=== PATIENT | female | born 1945 | race Caucasian/White ===

== ENCOUNTER 2017-03-19 15:11 | Emergency (ER) | payer MEDICARE, OTHER ==
--- NOTE | 2017-03-19 15:40 | EDM.PDOC ---
ED HPI GENERAL MEDICAL PROBLEM - General Chief Complaint: Head Injury Stated Complaint: bump on head Time Seen by Provider: 03/19/17 15:21 Source of Information: Reports: Patient History Limitations: Reports: No Limitations - History of Present Illness INITIAL COMMENTS - FREE TEXT/NARRATIVE: Patient comes in the emergency department today after sustaining a fall after hitting her head on a sign. Patient states that she was walking and she did not see a hard metal sign and hit the top of her head causing her to fall. Patient denies losing any consciousness or hurting any other part of her body however she states that her top of her head is extremely tender and she presented to the ER for further evaluation of this. Patient denies losing consciousness lightheaded dizziness vomiting, nausea. Patient also denies any weakness numbness tingling or blurred vision. Onset: Today, Sudden Quality: Reports: Throbbing Severity: Mild Improves with: Reports: Cold Therapy, Rest - Related Data Allergies Allergy/AdvReac Type Severity Reaction Status Date / Time flu vaccine Allergy Cannot Uncoded 03/19/17 15:33 Remember Home Meds: Home Meds Citalopram [Celexa] 20 mg PO DAILY 05/10/15 [History] Hydrochlorothiazide [Hydrochlorothiazide] 12.5 mg PO DAILY 05/10/15 [History] Alendronate [Fosamax] 70 mg PO Q7D@0600 07/11/15 [History] Past Medical History HEENT History: Reports: None Cardiovascular History: Reports: Hypertension Gastrointestinal History: Reports: None 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 History: Reports: None 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 Musculoskeletal History: Reports: Osteoporosis Neurological History: Reports: Headaches, Chronic Psychiatric History: Reports: Depression - Past Surgical History Female Surgical History: Reports: Hysterectomy Social & Family History - Family History Family Medical History: Noncontributory - Tobacco Use Smoking Status *Q: Never Smoker - Recreational Drug Use Recreational Drug Use: No ED ROS GENERAL - Review of Systems Review Of Systems: See Below Constitutional: Reports: No Symptoms HEENT: Reports: No Symptoms Respiratory: Reports: No Symptoms GI/Abdominal: Reports: No Symptoms : Reports: No Symptoms Skin: Reports: Other (tenderness on frontal/pariatal region of head ) ED EXAM, HEAD INJURY - Physical Exam Exam: See Below Exam Limited By: No Limitations General Appearance: Alert, WD/WN, No Apparent Distress Head: Scalp Hematoma, Scalp Tenderness Nexus Criteria: No: Posterior, Midline Cervical Tenderness, Evidence of Intoxication, Altered Level of Consciousness, Focal Neurological Deficit, Painful Distraction Injuries Eyes: Bilateral Eye: EOMI, Normal Fundi, Normal Inspection, PERRL Ears: Normal External Exam, Normal Canal, Hearing Grossly Normal Neck: Non-Tender, Full Range of Motion, Normal Alignment, Normal Inspection. 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 No: Abnormal Gait, Facial Droop, Motor Weakness, Sensory Deficit, Depressed Affect, Disoriented x 3 Skin: Normal Color, Warm/Dry - Agnes Coma Score Best Eye Response (Pooler): (4) Open Spontaneously Best Verbal Response (Agnes): (5) Oriented Best Motor Response (Pooler): (6) Obeys Commands Departure - Departure Time of Disposition: 15:40 Disposition: Home, Self-Care 01 Condition: Good Clinical Impression: Concussion injury of brain - Discharge Information Instructions: Head Injury, Adult, [id number], Concussion, Adult, [id number] Additional Instructions: rest Ice area for 20mins 3 times a day to help with the discomfort Take Tylenol and ibuprofen as needed for pain keep the lights low and avoid electronics the nest 24 hours If vomiting begins, feeling of the worst headed and blurry vision report back to the ER immediately If not feeling better within a week follow up with your PCP.
[2017-03-19 16:03] VITALS: BP 152/78
== END 2017-03-19 16:00 | disposition home or self-care (01) ==
LOC: VM.ED 15:11
DX: S06.0X0A Concussion without loss of consciousness, initial encounter (principal); I10 Essential (primary) hypertension; Z79.899 Other long term (current) drug therapy; W01.10XA Fall on same level from slipping, tripping and stumbling with subsequent striking against unspecified object, initial encounter; Z88.7 Allergy status to serum and vaccine
CPT/HCPCS: 99283; 99283-GF

== ENCOUNTER 2017-08-07 15:59 | Emergency (ER) | payer MEDICARE, OTHER ==
[2017-08-07 17:16] LABS: CHLORIDE,CL 104 mmol/L (98-107); SODIUM,NA 140 mmol/L (136-145)
[2017-08-07 17:35] VITALS: BP 147/82
--- NOTE | 2017-08-07 18:00 | EDM.PDOC ---
ED HPI GENERAL MEDICAL PROBLEM - General Chief Complaint: Chest Pain Stated Complaint: chest pain Time Seen by Provider: 08/07/17 17:00 Source of Information: Reports: Patient History Limitations: Reports: No Limitations - History of Present Illness INITIAL COMMENTS - FREE TEXT/NARRATIVE: Pt. complains of respirophasic chest pain located in the area of the L upper chest for 1 day. 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 Denies any substernal chest pain. No shortness of breath. No jaw, arm, neck or back pain. She states the discomfort is worse with deep breathing and movement. Duration: Constant Location: Reports: Chest Quality: Reports: Ache, Sharp Severity: Moderate Associated Symptoms: Denies: Diaphoresis, Fever/Chills, Malaise, Nausea/Vomiting , Rash, Seizure, Shortness of Breath Left mid Breast Pain Score (Numeric/FACES): 7 - Related Data Allergies Allergy/AdvReac Type Severity Reaction Status Date / Time flu vaccine Allergy Cannot Uncoded 08/07/17 16:11 Remember Home Meds: Home Meds Citalopram [Celexa] 10 mg PO DAILY 05/10/15 [History] Hydrochlorothiazide 12.5 mg PO DAILY 05/10/15 [History] Alendronate [Fosamax] 70 mg PO Q7D@0600 07/11/15 [History] Aspirin/Caffeine [Anacin 400-32 mg Tablet] 1 each PO DAILY 08/07/17 [History] Aspirin/Caffeine [Anacin 500-32 mg Tablet] 1 each PO Q4H PRN 08/07/17 [History] Cholecalciferol (Vitamin D3) [D-2000] 2,000 unit PO DAILY 08/07/17 [History] Multivitamin [Multivitamins] 1 each PO DAILY 08/07/17 [History] Past Medical History HEENT History: Reports: None Cardiovascular History: Reports: Hypertension Gastrointestinal History: Reports: None 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 History: Reports: None 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 Musculoskeletal History: Reports: Osteoporosis Other Musculoskeletal History: herniated disc Neurological History: Reports: Concussion, Headaches, Chronic Psychiatric History: Reports: Depression - Past Surgical History HEENT Surgical History: Reports: Tonsillectomy Female Surgical History: Reports: Hysterectomy Social & Family History - Family History Family Medical History: Noncontributory - Tobacco Use Smoking Status *Q: Never Smoker - Caffeine Use Caffeine Use: Reports: Coffee, Soda - Recreational Drug Use Recreational Drug Use: No ED ROS GENERAL - Review of Systems Review Of Systems: See Below Constitutional: Reports: No Symptoms HEENT: Reports: No Symptoms Respiratory: Reports: Pleuritic Chest Pain Cardiovascular: Reports: No Symptoms Endocrine: Reports: No Symptoms GI/Abdominal: Reports: No Symptoms : Reports: No Symptoms Musculoskeletal: Reports: No Symptoms Skin: Reports: No Symptoms Neurological: Reports: No Symptoms Psychiatric: Reports: No Symptoms Hematologic/Lymphatic: Reports: No Symptoms Immunologic: Reports: No Symptoms ED EXAM, GENERAL - Physical Exam Exam: See Below Exam Limited By: No Limitations General Appearance: Alert, WD/WN, No Apparent Distress Throat/Mouth: Normal Inspection, Normal Lips, Normal Teeth, Normal Gums, Normal Oropharynx, Normal Voice, No Airway Compromise Head: Atraumatic, Normocephalic Neck: Normal Inspection, Supple, Non-Tender, Full Range of Motion Respiratory/Chest: No Respiratory Distress, Lungs Clear, Normal Breath Sounds, No Accessory Muscle Use, Other (chest tenderness on palpation of L anterior chest. Also noted with movement.) Cardiovascular: Normal Peripheral Pulses, Regular Rate, Rhythm, No Edema, No Gallop, No JVD, No Murmur, No Rub Peripheral Pulses: 4+: Radial (L), Radial (R) GI/Abdominal: Normal Bowel Sounds, Soft, Non-Tender, No Organomegaly, No Distention, No Abnormal Bruit, No Mass (Female) Exam: Deferred Rectal (Female) Exam: Deferred Back Exam: Normal Inspection, Full Range of Motion, NT Extremities: Normal Inspection, Normal Range of Motion, Non-Tender, Normal Capillary Refill, No Pedal Edema Neurological: Alert, Oriented, CN II-XII Intact, Normal Cognition, Normal Gait, Normal Reflexes, No Motor/Sensory Deficits Psychiatric: Normal Affect, Normal Mood Skin Exam: Warm, Dry, Intact, Normal Color, No Rash EKG INTERPRETATION Rhythm: NSR [place]: Normal P-Wave: Present QRS: Normal ST-T: Normal QT: Normal Course - Vital Signs Last Recorded V/S: Last Vital Signs Temp 36.9 C 08/07/17 16:06 Pulse 72 08/07/17 17:30 Resp 20 08/07/17 16:06 BP 147/82 H 08/07/17 17:30 Pulse Ox 98 08/07/17 16:06 - Orders/Labs/Meds Orders: Active Orders 24 hr Category Date Time Status EKG Documentation Completion [RC] STAT Care 08/07/17 16:23 Active Chest 2V [CR] Stat Exams 08/07/17 16:22 Taken Labs: Laboratory Tests 08/07/17 08/07/17 08/07/17 Range/Units 16:41 16:41 16:41 WBC 7.2 (4.0-10.0) x10^3/uL RBC 4.37 (4.00-5.50) x10^6/uL Hgb 13.3 (12.0-16.0) g/dL Hct 40.0 (33.0-47.0) % MCV 91.5 (78.0-93.0) fL MCH 30.4 (26.0-32.0) pg MCHC 33.3 (32.0-36.0) g/dL RDW Coeff of Rosalind 13.6 (10.0-15.0) % Plt Count 216 (130-400) x10^3/uL Neut % (Auto) 55.4 (50.0-80.0) % Lymph % (Auto) 35.1 (25.0-50.0) % Ector % (Auto) 7.4 (2.0-11.0) % Eos % (Auto) 1.1 (0.0-4.0) % Baso % (Auto) 1.0 (0.2-1.2) % PT 10.2 (9.6-11.4) SEC INR 1.0 L (2.0-3.5) D-Dimer, Quantitative 0.38 (<=0.58) mg/LFEU Sodium (136-145) mmol/L Potassium (3.5-5.1) mmol/L Chloride (98-107) mmol/L Carbon Dioxide (21-32) mmol/L Anion Gap (10-20) mmol/L BUN (7-18) mg/dL Creatinine (0.55-1.02) mg/dL Est Cr Clr Drug Dosing mL/min Estimated GFR (MDRD) Glucose (74-106) mg/dL Calcium (8.5-10.1) mg/dL Corrected Calcium (8.5-10.1) mg/dL Total Bilirubin (0.2-1.0) mg/dL AST (15-37) U/L ALT (14-59) U/L Alkaline Phosphatase (46-116) U/L Troponin I (<=0.056) ng/mL C-Reactive Protein (<=0.9) mg/dL Total Protein (6.4-8.2) g/dL Albumin (3.4-5.0) g/dL Globulin Albumin/Globulin Ratio // Range/Units 16:41 WBC (4.0-10.0) x10^3/uL RBC (4.00-5.50) x10^6/uL Hgb (12.0-16.0) g/dL Hct (33.0-47.0) % MCV (78.0-93.0) fL MCH (26.0-32.0) pg MCHC (32.0-36.0) g/dL RDW Coeff of Rosalind (10.0-15.0) % Plt Count (130-400) x10^3/uL Neut % (Auto) (50.0-80.0) % Lymph % (Auto) (25.0-50.0) % Ector % (Auto) (2.0-11.0) % Eos % (Auto) (0.0-4.0) % Baso % (Auto) (0.2-1.2) % PT (9.6-11.4) SEC INR (2.0-3.5) D-Dimer, Quantitative (<=0.58) mg/LFEU Sodium 140 (136-145) mmol/L Potassium 3.7 (3.5-5.1) mmol/L Chloride 104 (98-107) mmol/L Carbon Dioxide 29 (21-32) mmol/L Anion Gap 10.7 (10-20) mmol/L BUN 18 (7-18) mg/dL Creatinine 0.7 (0.55-1.02) mg/dL Est Cr Clr Drug Dosing 64.41 mL/min Estimated GFR (MDRD) > 60 Glucose 88 (74-106) mg/dL Calcium 9.1 (8.5-10.1) mg/dL Corrected Calcium 9.58 (8.5-10.1) mg/dL Total Bilirubin 0.3 (0.2-1.0) mg/dL AST 26 (15-37) U/L ALT 22 (14-59) U/L Alkaline Phosphatase 68 (46-116) U/L Troponin I < 0.017 (<=0.056) ng/mL C-Reactive Protein < 0.2 (<=0.9) mg/dL Total Protein 6.4 (6.4-8.2) g/dL Albumin 3.4 (3.4-5.0) g/dL Globulin 3.0 Albumin/Globulin Ratio 1.13 - Radiology Interpretation Free Text/Narrative:: CXR is negative Departure - Departure Time of Disposition: 17:30 Disposition: Home, Self-Care 01 Clinical Impression: Chest wall pain - Discharge Information Instructions: Chest Wall Pain, [id number] Referrals: Adela Dyer DO [Primary Care Provider] - Forms: ED Department Discharge Additional Instructions: Home to rest. Ibuprofen 600mg every 6-8 hours as needed for pain. Heat or ice as needed for chest pain. - My Orders Last 24 Hours: My Active Orders 08/07/17 16:22 Chest 2V [CR] Stat 08/07/17 16:23 EKG Documentation Completion [RC] STAT - Assessment/Plan Last 24 Hours: My Active Orders 08/07/17 16:22 Chest 2V [CR] Stat 08/07/17 16:23 EKG Documentation Completion [RC] STAT Plan: Home to rest. Ibuprofen 600mg every 6-8 hours as needed for pain. Heat or ice as needed for chest pain.
== END 2017-08-07 17:35 | disposition home or self-care (01) ==
LOC: VM.ED 15:59
DX: R07.89 Other chest pain (principal); I10 Essential (primary) hypertension; Z88.7 Allergy status to serum and vaccine; Z79.899 Other long term (current) drug therapy; Z79.82 Long term (current) use of aspirin; Z90.710 Acquired absence of both cervix and uterus
CPT/HCPCS: 36415; 71046; 80053; 84484; 85025; 85379; 85610; 86140; 93005; 99285

== ENCOUNTER 2018-10-21 15:26 | Emergency (ER) | payer MEDICARE, OTHER ==
[2018-10-21 15:51] VITALS: BP 140/74
--- NOTE | 2018-10-21 16:24 | EDM.PDOC ---
ED HPI GENERAL MEDICAL PROBLEM - General Chief Complaint: ENT Problem Stated Complaint: POUNDING IN THE LEFT EAR Time Seen by Provider: 10/21/18 16:11 Source of Information: Reports: Patient History Limitations: Reports: No Limitations - History of Present Illness INITIAL COMMENTS - FREE TEXT/NARRATIVE: Patient presents with complaints of a pulsing pounding in her left ear. She denies ear pain, fever, chills, cold, cough. Denies chest pain, sob, abdominal pain, nausea, vomiting, no urinary or bowel symptoms. Feels fine without complaints with the exception of the pulsing sound in her ear that she describes as a heart beat sound. This started yesterday. Nothing makes this better or worse. Onset: Sudden Onset Date: 10/20/18 Duration: Intermittent Location: Reports: Other (left ear) Severity: Mild Associated Symptoms: Reports: No Other Symptoms - Related Data Allergies Allergy/AdvReac Type Severity Reaction Status Date / Time flu vaccine Allergy Cannot Uncoded 08/07/17 16:11 Remember Home Meds: Home Meds Citalopram [Celexa] 10 mg PO DAILY 05/10/15 [History] hydroCHLOROthiazide [Hydrochlorothiazide] 12.5 mg PO DAILY 05/10/15 [History] Alendronate [Fosamax] 70 mg PO Q7D@0600 07/11/15 [History] Aspirin/Caffeine [Anacin 400-32 mg Tablet] 1 each PO DAILY 08/07/17 [History] Cholecalciferol (Vitamin D3) [D-2000] 2,000 unit PO DAILY 08/07/17 [History] Multivitamin [Multivitamins] 1 each PO DAILY 08/07/17 [History] Past Medical History HEENT History: Reports: None Cardiovascular History: Reports: Hypertension Gastrointestinal History: Reports: None 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 History: Reports: 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 Musculoskeletal History: Reports: Osteoporosis Other Musculoskeletal History: herniated disc Neurological History: Reports: Concussion, Headaches, Chronic Psychiatric History: Reports: Depression - Past Surgical History HEENT Surgical History: Reports: Tonsillectomy Female Surgical History: Reports: Hysterectomy Social & Family History - Family History Family Medical History: Noncontributory - Tobacco Use Smoking Status *Q: Never Smoker - Caffeine Use Caffeine Use: Reports: Coffee, Soda ED ROS ENT - Review of Systems Review Of Systems: See Below Constitutional: Reports: No Symptoms HEENT: Reports: Other (pulsing sound in left ear) Respiratory: Reports: No Symptoms Cardiovascular: Reports: No Symptoms Endocrine: Reports: No Symptoms GI/Abdominal: Reports: No Symptoms : Reports: No Symptoms Musculoskeletal: Reports: No Symptoms Skin: Reports: No Symptoms Neurological: Reports: No Symptoms Psychiatric: Reports: No Symptoms Hematologic/Lymphatic: Reports: No Symptoms Immunologic: Reports: No Symptoms ED EXAM, ENT - Physical Exam Exam: See Below Exam Limited By: No Limitations General Appearance: Alert, WD/WN, No Apparent Distress Eye Exam: Bilateral Eye: EOMI, Normal Inspection, PERRL Ears: Normal External Exam, Normal Canal, Hearing Grossly Normal, Normal TMs Nose: Normal Inspection, Normal Mucousa, No Blood Mouth/Throat: Normal Inspection, Normal Gums, Normal Lips, Normal Oropharynx, Normal Teeth Head: Atraumatic, Normocephalic Neck: Normal Inspection, Supple, Non-Tender, Full Range of Motion. No: Carotid Bruit Respiratory/Chest: No Respiratory Distress, Lungs Clear, Normal Breath Sounds, No Accessory Muscle Use, Chest Non-Tender Cardiovascular: Normal Peripheral Pulses, Regular Rate, Rhythm, No Edema, No Gallop, No JVD, No Murmur, No Rub GI/Abdominal: Normal Bowel Sounds, Soft, Non-Tender, No Organomegaly, No Distention, No Abnormal Bruit, No Mass Extremities: Normal Inspection, Normal Range of Motion, Non-Tender, No Pedal Edema, Normal Capillary Refill Neurological: Alert, Oriented, CN II-XII Intact, Normal Cognition, Normal Gait, Normal Reflexes, No Motor/Sensory Deficits Psychiatric: Normal Affect, Normal Mood Skin: Warm, Dry, Intact, Normal Color, No Rash Lymphatic: No Adenopathy Course - Vital Signs Last Recorded V/S: Last Vital Signs Temp 36.3 C 10/21/18 15:35 Pulse 73 10/21/18 15:35 Resp 18 10/21/18 15:35 BP 140/74 10/21/18 15:35 Pulse Ox 95 10/21/18 15:35 Departure - Departure Time of Disposition: 16:27 Disposition: Home, Self-Care 01 Condition: Good Clinical Impression: Pulsatile tinnitus of left ear - Discharge Information *PRESCRIPTION DRUG MONITORING PROGRAM REVIEWED*: Not Applicable *COPY OF PRESCRIPTION DRUG MONITORING REPORT IN PATIENT JAYLEN: Not Applicable Instructions: Tinnitus Referrals: Adela Dyer, [Primary Care Provider] - Additional Instructions: Plan Follow up with Dr. Dyer as scheduled on You most likely are suffering from pulsatile tinnitus. This can be caused by hearing loss, hypertension, carotid artery sclerosis You may need some additional testing to be sure this is not a result of a narrowing of your arteries Please call if you have any additional questions or concerns - Problem List & Annotations (1) Pulsatile tinnitus of left ear SNOMED Code(s): 372128976, 041238430 Code(s): H93.A2 - PULSATILE TINNITUS, LEFT EAR Status: Acute Priority: Low Current Visit: Yes - Problem List Review Problem List Initiated/Reviewed/Updated: Yes
== END 2018-10-21 16:30 | disposition home or self-care (01) ==
LOC: VM.ED 15:26
DX: H93.A2 Pulsatile tinnitus, left ear (principal); I10 Essential (primary) hypertension; F32.9 Major depressive disorder, single episode, unspecified; Z79.82 Long term (current) use of aspirin; Z79.899 Other long term (current) drug therapy; Z88.7 Allergy status to serum and vaccine
CPT/HCPCS: 99283; 99284-GF

== ENCOUNTER 2019-03-28 17:46 | Emergency (ER) | payer MEDICARE, OTHER ==
[2019-03-28] MEDS ORDERED: Sodium Chloride 0.9% 10 ML Syringe FLUSH PRN (18:04)
[2019-03-28] MEDS ORDERED: Sodium Chloride 0.9% 1,000 ML IV ONE ×2 (18:07→19:34)
[2019-03-28 18:27] LABS: BARBITURATE SCREEN,URINE NEGATIVE (NEGATIVE); BENZODIAZEPINES SCREEN,URINE NEGATIVE (NEGATIVE); EDDP,URINE SCREEN NEGATIVE (NEGATIVE); METHAMPHETAMINE SCREEN, URINE NEGATIVE (NEGATIVE); TCA SCREEN,URINE NEGATIVE (NEGATIVE); THC SCREEN,URINE 50 NG/ML NEGATIVE (NEGATIVE)
[2019-03-28 18:55] LABS: CHLORIDE,CL 99 mmol/L (98-107); SODIUM,NA 137 mmol/L (136-145)
[2019-03-28 18:56] VITALS: BP 136/70; PULSE 70
[2019-03-28 18:57] LABS: ANION GAP 13.5 mmol/L (10-20)
[2019-03-28] MEDS ORDERED: Iopamidol 612 MG/ML 100 ML Bottle IVPUSH ONE (19:38)
--- NOTE | 2019-03-28 20:12 | CT ---
[id number] CT/CT Head WO IV EXAM: CT Head WO IV CLINICAL DATA: TRAUMA CHANGE IN MENTAL STATUS COMPARISON: NO PREVIOUS SIMILAR EXAM IS AVAILABLE FOR COMPARISON. FINDINGS: There is no mass or mass effect. There is no hemorrhage or hydrocephalus. There are no extra-axial fluid collections. There are no sites of abnormal attenuation. IMPRESSION: NO PLAIN CT EVIDENCE OF ACUTE INTRACRANIAL PROCESS. Neil Granger MD 03/28/192010 Thank you for allowing us to participate in the care of your patient.
--- NOTE | 2019-03-28 20:19 | CT ---
[id number] CT/CT Chest Abdomen Pelvis W IV Exam: CT Chest Abdomen Pelvis W IV Clinical Data: TRAUMA COMPARISON: CORRELATION IS MADE WITH THE PLAIN FILM OF AUGUST 07, 2017 FINDINGS: There is no pulmonary parenchymal contusion There is no pleural effusion or pneumothorax There is no lung mass There is no mediastinal hemorrhage or mass The great vessels are intact The liver and spleen, kidneys and adrenals, pancreas and aorta are unremarkable The pelvis shows no mass, hemorrhage, or fluid collection There is no fracture seen IMPRESSION: NO ACUTE INJURY Neil Granger MD 03/28/192016 Thank you for allowing us to participate in the care of your patient.
--- NOTE | 2019-03-29 01:01 | EDM.PDOC ---
ED HPI GENERAL MEDICAL PROBLEM - General Chief Complaint: General Stated Complaint: FALL Time Seen by Provider: 03/28/19 17:50 Source of Information: Reports: Patient, Provider History Limitations: Reports: No Limitations - History of Present Illness INITIAL COMMENTS - FREE TEXT/NARRATIVE: Pt. was sent to ER from clinic. Pt. states that she had a fall at home and is complaining of L sided abdominal, lower chest, pelvic and back pain. She was recently seen in the clinic for cough and was diagnosed with viral URI. She states that she doesn't think she had been eating or drinking enough. Pt. underwent plain film x-rays of pelvis, hip and L spine which were negative for acute pathology. She was sent to ER for further evaluation and care. Pt. denies any chest pain or shortness of breath. No nausea, vomiting, or diarrhea. She thinks she hit her head when she fell. She complains of some neck pain as well. She states that she fell off of a chair. Denied any chest pain, palpitations or lightheadedness prior to the fall. Provider at [facility] talked to the patient's son. He felt that she sounded weak, and was somewhat confused. She was alert and oriented at the clinic and for nursing staff on arrival to ER. Onset Date: 03/25/19 Location: Reports: Chest, Abdomen, Back, Pelvis, Lower Extremity, Left Quality: Reports: Ache, Dull Left Lower Anterior Chest Pain Score (Numeric/FACES): 7 - Related Data Allergies Allergy/AdvReac Type Severity Reaction Status Date / Time flu vaccine Allergy Cannot Uncoded 03/28/19 18:41 Remember Home Meds: Home Meds Citalopram [Celexa] 10 mg PO DAILY 05/10/15 [History] hydroCHLOROthiazide [Hydrochlorothiazide] 12.5 mg PO DAILY 05/10/15 [History] Alendronate [Fosamax] 70 mg PO Q7D@0600 07/11/15 [History] Aspirin/Caffeine [Anacin 400-32 mg Tablet] 1 each PO DAILY 08/07/17 [History] Cholecalciferol (Vitamin D3) [D-2000] 2,000 unit PO DAILY 08/07/17 [History] Multivitamin [Multivitamins] 1 each PO DAILY 08/07/17 [History] Past Medical History HEENT History: Reports: None Cardiovascular History: Reports: Hypertension Gastrointestinal History: Reports: None 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 History: Reports: None HAND TUBE BENDER History: Reports: None Musculoskeletal History: Reports: Osteoporosis Other Musculoskeletal History: herniated disc Neurological History: Reports: Concussion, Headaches, Chronic Psychiatric History: Reports: Depression - Past Surgical History HEENT Surgical History: Reports: Tonsillectomy Female Surgical History: Reports: Hysterectomy Social & Family History - Family History Family Medical History: Noncontributory - Tobacco Use Smoking Status *Q: Never Smoker - Caffeine Use Caffeine Use: Reports: Coffee, Soda - Recreational Drug Use Recreational Drug Use: No ED ROS GENERAL - Review of Systems Review Of Systems: See Below Constitutional: Reports: No Symptoms HEENT: Reports: No Symptoms Respiratory: Reports: No Symptoms Cardiovascular: Reports: No Symptoms Endocrine: Reports: No Symptoms GI/Abdominal: Reports: Abdominal Pain : Reports: No Symptoms Musculoskeletal: Reports: Joint Pain Skin: Reports: No Symptoms Neurological: Reports: No Symptoms Psychiatric: Reports: No Symptoms Hematologic/Lymphatic: Reports: No Symptoms Immunologic: Reports: No Symptoms ED EXAM, GENERAL - Physical Exam Exam: See Below Exam Limited By: No Limitations General Appearance: Alert, WD/WN, No Apparent Distress Eye Exam: Bilateral Eye: EOMI, Normal Fundi, Normal Inspection, PERRL Ear Exam: Bilateral Ear: Auricle Normal, Canal Normal, TM normal Nose: Normal Inspection, Normal Mucosa, No Blood Throat/Mouth: Normal Inspection, Normal Lips, Normal Teeth, Normal Gums, Normal Oropharynx, Normal Voice, No Airway Compromise Head: Atraumatic, Normocephalic, Other Neck: Normal Inspection, Tender Midline Respiratory/Chest: No Respiratory Distress, Lungs Clear, Normal Breath Sounds, No Accessory Muscle Use, Other (L anterior lower chest pain, worse with palp. No ecchymosis.) Cardiovascular: Normal Peripheral Pulses, Regular Rate, Rhythm, No Edema, No Gallop, No JVD, No Murmur, No Rub Peripheral Pulses: 4+: Radial (L) GI/Abdominal: Normal Bowel Sounds, Soft, Non-Tender, No Organomegaly, No Distention, No Mass, Pelvis Stable (Female) Exam: Deferred Rectal (Female) Exam: Deferred Back Exam: Normal Inspection, Full Range of Motion Extremities: Normal Inspection, Non-Tender, Joint Swelling (L hip. She is able to ambulate and bear weight.), Limited Range of Motion Neurological: Alert, Oriented, CN II-XII Intact, Normal Cognition, Normal Gait, Normal Reflexes, No Motor/Sensory Deficits Psychiatric: Normal Affect, Anxious Skin Exam: Warm, Dry, Intact, Normal Color, No Rash Lymphatic: No Adenopathy EKG INTERPRETATION Rhythm: NSR [place]: Normal P-Wave: Present QRS: Normal ST-T: Normal QT: Normal Course - Vital Signs Last Recorded V/S: Last Vital Signs Temp 37.6 C 03/28/19 17:50 Pulse 70 03/28/19 17:50 Resp 16 03/28/19 17:50 BP 136/70 03/28/19 17:50 Pulse Ox 96 03/28/19 17:50 - Orders/Labs/Meds Orders: Active Orders 24 hr Category Date Time Status EKG Documentation Completion [RC] STAT Care 03/28/19 18:04 Active Cervical Spine wo Cont [CT] Stat Exams 03/28/19 18:03 Taken Sodium Chloride 0.9% [Saline Flush] Med 03/28/19 18:04 Active 10 ml FLUSH ASDIRECTED PRN Peripheral IV Insertion Adult [OM.PC] Routine Oth 03/28/19 18:04 Ordered Medication Orders Sodium Chloride (Saline Flush) 10 ml FLUSH ASDIRECTED PRN PRN Reason: Keep Vein Open Labs: Laboratory Tests 03/28/19 03/28/19 03/28/19 Range/Units 18:15 18:15 18:18 WBC 5.8 (4.0-10.0) x10^3/uL RBC 4.44 (4.00-5.50) x10^6/uL Hgb 13.4 (12.0-16.0) g/dL Hct 39.5 (33.0-47.0) % MCV 89.0 (78.0-93.0) fL MCH 30.2 (26.0-32.0) pg MCHC 33.9 (32.0-36.0) g/dL RDW Coeff of Rosalind 13.9 (10.0-15.0) % Plt Count 195 (130-400) x10^3/uL Neut % (Auto) 57.2 (50.0-80.0) % Lymph % (Auto) 22.9 L (25.0-50.0) % [place] % (Auto) 19.0 H (2.0-11.0) % Eos % (Auto) 0.2 (0.0-4.0) % Baso % (Auto) 0.7 (0.2-1.2) % PT (10.0-12.8) SEC INR (2.0-3.5) Sodium (136-145) mmol/L Potassium (3.5-5.1) mmol/L Chloride (98-107) mmol/L Carbon Dioxide (21-32) mmol/L Anion Gap (10-20) mmol/L BUN (7-18) mg/dL Creatinine (0.55-1.02) mg/dL Est Cr Clr Drug Dosing Estimated GFR (MDRD) Glucose (74-106) mg/dL Calcium (8.5-10.1) mg/dL Corrected Calcium (8.5-10.1) mg/dL Magnesium (1.8-2.4) mg/dL Total Bilirubin (0.2-1.0) mg/dL AST (15-37) U/L ALT (14-59) U/L Alkaline Phosphatase (46-116) U/L Troponin I (<=0.056) ng/mL C-Reactive Protein (<=0.9) mg/dL Total Protein (6.4-8.2) g/dL Albumin (3.4-5.0) g/dL Globulin Albumin/Globulin Ratio TSH, Ultra Sensitive (0.358-3.74) uIU/mL Urine Color Yellow (YELLOW) Urine Appearance Slightly cloudy H (CLEAR) Urine pH 5.5 (5.0-8.0) Ur Specific [place] >=1.030 Urine Protein 30 H (NEGATIVE) mg/dL Urine Glucose (UA) Negative (NEGATIVE) mg/dL Urine Ketones Trace H (NEGATIVE) mg/dL Urine Occult Blood Trace-intact H (NEGATIVE) Urine Nitrite Negative (NEGATIVE) Urine Bilirubin Small H (NEGATIVE) Urine Urobilinogen 0.2 (0.2) EU/dL Ur Leukocyte Esterase Negative (NEGATIVE) Urine RBC 5-10 H (NOT SEEN) /HPF Urine WBC 0-5 (NOT SEEN) /HPF Ur Squamous Epith Cells Few H (NEGATIVE) /HPF Urine Bacteria Rare (NEGATIVE) /HPF Urine Mucus Not seen (NEGATIVE) /LPF Urine Opiates Screen Negative (NEGATIVE) Ur Buprenorphine Scrn Negative (NEGATIVE) Ur Oxycodone Screen Negative (NEGATIVE) Ur EDDP (Meth Metab) Negative (NEGATIVE) Urine Methadone Screen Negative (NEGATIVE) Ur Barbiturates Screen Negative (NEGATIVE) Ur Tricyclics Screen Negative (NEGATIVE) Ur Phencyclidine Scrn Negative (NEGATIVE) Ur Amphetamine Screen Negative (NEGATIVE) U Methamphetamines Scrn Negative (NEGATIVE) Urine MDMA Screen Negative (NEGATIVE) U Benzodiazepines Scrn Negative (NEGATIVE) U Cocaine Metab Screen Negative (NEGATIVE) U Marijuana (THC) Screen Negative (NEGATIVE) Ethyl Alcohol (0-3) mg/dL Monoscreen (NEGATIVE) 03/28/19 03/28/19 03/28/19 Range/Units 18:18 18:18 18:18 WBC (4.0-10.0) x10^3/uL RBC (4.00-5.50) x10^6/uL Hgb (12.0-16.0) g/dL Hct (33.0-47.0) % MCV (78.0-93.0) fL MCH (26.0-32.0) pg MCHC (32.0-36.0) g/dL RDW Coeff of Rosalind (10.0-15.0) % Plt Count (130-400) x10^3/uL Neut % (Auto) (50.0-80.0) % Lymph % (Auto) (25.0-50.0) % [place] % (Auto) (2.0-11.0) % Eos % (Auto) (0.0-4.0) % Baso % (Auto) (0.2-1.2) % PT 11.7 (10.0-12.8) SEC INR 1.0 L (2.0-3.5) Sodium 137 (136-145) mmol/L Potassium 3.5 (3.5-5.1) mmol/L Chloride 99 (98-107) mmol/L Carbon Dioxide 28 (21-32) mmol/L Anion Gap 13.5 (10-20) mmol/L BUN 21 H (7-18) mg/dL Creatinine 0.9 (0.55-1.02) mg/dL Est Cr Clr Drug Dosing TNP Estimated GFR (MDRD) > 60 Glucose 75 (74-106) mg/dL Calcium 8.3 L (8.5-10.1) mg/dL Corrected Calcium 8.86 (8.5-10.1) mg/dL Magnesium 2.2 (1.8-2.4) mg/dL Total Bilirubin 0.4 (0.2-1.0) mg/dL AST 40 H (15-37) U/L ALT 31 (14-59) U/L Alkaline Phosphatase 61 (46-116) U/L Troponin I 0.027 (<=0.056) ng/mL C-Reactive Protein 7.5 H (<=0.9) mg/dL Total Protein 6.8 (6.4-8.2) g/dL Albumin 3.3 L (3.4-5.0) g/dL Globulin 3.5 Albumin/Globulin Ratio 0.94 TSH, Ultra Sensitive 0.711 (0.358-3.74) uIU/mL Urine Color (YELLOW) Urine Appearance (CLEAR) Urine pH (5.0-8.0) Ur Specific [place] Urine Protein (NEGATIVE) mg/dL Urine Glucose (UA) (NEGATIVE) mg/dL Urine Ketones (NEGATIVE) mg/dL Urine Occult Blood (NEGATIVE) Urine Nitrite (NEGATIVE) Urine Bilirubin (NEGATIVE) Urine Urobilinogen (0.2) EU/dL Ur Leukocyte Esterase (NEGATIVE) Urine RBC (NOT SEEN) /HPF Urine WBC (NOT SEEN) /HPF Ur Squamous Epith Cells (NEGATIVE) /HPF Urine Bacteria (NEGATIVE) /HPF Urine Mucus (NEGATIVE) /LPF Urine Opiates Screen (NEGATIVE) Ur Buprenorphine Scrn (NEGATIVE) Ur Oxycodone Screen (NEGATIVE) Ur EDDP (Meth Metab) (NEGATIVE) Urine Methadone Screen (NEGATIVE) Ur Barbiturates Screen (NEGATIVE) Ur Tricyclics Screen (NEGATIVE) Ur Phencyclidine Scrn (NEGATIVE) Ur Amphetamine Screen (NEGATIVE) U Methamphetamines Scrn (NEGATIVE) Urine MDMA Screen (NEGATIVE) U Benzodiazepines Scrn (NEGATIVE) U Cocaine Metab Screen (NEGATIVE) U Marijuana (THC) Screen (NEGATIVE) Ethyl Alcohol < 3 (0-3) mg/dL Monoscreen Negative (NEGATIVE) Meds: Medications Generic Name Dose Route Start Last Admin Trade Name Freq PRN Reason Stop Dose Admin Sodium Chloride 10 ml 03/28/19 18:04 Saline Flush FLUSH ASDIRECTED PRN Keep Vein Open Discontinued Medications Generic Name Dose Route Start Last Admin Trade Name Vivekq PRN Reason Stop Dose Admin Sodium Chloride 1,000 mls @ 1,000 mls/hr 03/28/19 18:07 03/28/19 18:19 Normal Saline IV 03/28/19 19:06 1,000 mls/hr .BOLUS ONE Administration Sodium Chloride 1,000 mls @ 1,000 mls/hr 03/28/19 19:34 03/28/19 19:45 Normal Saline IV 03/28/19 20:33 1,000 mls/hr .BOLUS ONE Administration Iopamidol 100 ml 03/28/19 19:38 03/28/19 19:38 Isovue-300 (61%) IVPUSH 03/28/19 19:39 100 ml ONETIME ONE Administration - Radiology Interpretation Free Text/Narrative:: CT chest, abdomen and pelvis were obtained and are negative. CT brain is negative for acute pathology. CT cervical spine negative for fracture. No obvious subluxation. Multiple chronic findings noted. - Re-Assessments/Exams Free Text/Narrative Re-Assessment/Exam: Pt. was given 1.5 liters or NS in ER. She remained stable in my care in ER. Departure - Departure Time of Disposition: 20:30 Disposition: Home, Self-Care 01 Condition: Good Clinical Impression: Chest wall contusion, Contusion of hip, left, Abdominal wall contusion, Dehydration - Discharge Information Instructions: Dehydration, Adult, Dorp-pr-Lbow, Viral Illness, Adult Referrals: Adela Dyer DO [Primary Care Provider] - Forms: ED Department Discharge Additional Instructions: Home to rest. Drink plenty of fluids Tylenol and ibuprofen as needed for fever/discomfort. Recheck in clinic tomorrow. Sepsis Event Note - Evaluation Sepsis Screening Result: No Definite Risk - Focused Exam Vital Signs: Vital Signs Temp Pulse Resp BP Pulse Ox 03/28/19 17:50 37.6 C 70 16 136/70 96 Date Exam was Performed: 03/29/19 Time Exam was Performed: 00:56 - My Orders Last 24 Hours: My Active Orders 03/28/19 18:03 Cervical Spine wo Cont [CT] Stat 03/28/19 18:04 EKG Documentation Completion [RC] STAT Sodium Chloride 0.9% [Saline Flush] 10 ml FLUSH ASDIRECTED PRN Peripheral IV Insertion Adult [OM.PC] Routine - Assessment/Plan Last 24 Hours: My Active Orders 03/28/19 18:03 Cervical Spine wo Cont [CT] Stat 03/28/19 18:04 EKG Documentation Completion [RC] STAT Sodium Chloride 0.9% [Saline Flush] 10 ml FLUSH ASDIRECTED PRN Peripheral IV Insertion Adult [OM.PC] Routine Plan: Pt. was quite dehydrated (urine SG was 1.030). No history of nausea, vomiting, diarrhea, or exertion. Discussed the importance of staying hydrated. Discussed insensible water loss during winter when humidity is low and heating system is on. She states that she hardly ever drinks water. She was advised to drink 8 glasses of water per day. Eat a good meal. Follow-up in clinic later this week, sooner if not gradually improving. As far as the patient's mental status is concerned, she is alert and oriented during her stay. She is able to recall all of her medical history. She feels she is able to care for herself, and states that she lives down the [address] and will return/call 911 if she has any chest pain, shortness of breath, palpitations, feels faint, etc.
--- NOTE | 2019-03-29 07:36 | CT ---
[id number] CT/CT Cervical Spine WO IV Exam: CT Cervical Spine WO IV Clinical Data: TRAUMA COMPARISON: NO PREVIOUS SIMILAR EXAM IS AVAILABLE FINDINGS: There is no obvious fracture or subluxation No previous studies are available for comparison The prevertebral soft tissues are unremarkable There is loss of disc space at C5-C6 There is minimal posterior positioning of C5 on C6 likely degenerative There is a normal appearance of the C1-C2 articulation IMPRESSION: NO OBVIOUS FRACTURE OR SUBLUXATION ABNORMAL FINDING C5-C6 LIKELY DEGENERATIVE CONSIDER GENTLE FLEXION AND EXTENSION LATERAL VIEWS. IF SYMPTOMS PERSIST, CONSIDER MRI. ABNORMAL ALIGNMENT OF THE SPINOLAMINAL LINE AT THIS LEVEL LIKELY IS DEGENERATIVE ANTERIOR BONY DENSITY ADJACENT TO THE ANTERIOR INFERIOR CORNER OF THE C5 VERTEBRAL RIGHT LIKELY IS ALSO DEGENERATIVE THERE IS NO SOFT TISSUE SWELLING AT THIS LEVEL CONSIDER PERHAPS IMMOBILIZATION WITH A SOFT COLLAR AND FURTHER IMAGING Neil Granger MD 03/29/19 0735 Thank you for allowing us to participate in the care of your patient.
== END 2019-03-28 21:00 | disposition home or self-care (01) ==
LOC: VM.ED 17:46
DX: S70.02XA Contusion of left hip, initial encounter (principal); S20.212A Contusion of left front wall of thorax, initial encounter; S30.1XXA Contusion of abdominal wall, initial encounter; E86.0 Dehydration; I10 Essential (primary) hypertension; F32.9 Major depressive disorder, single episode, unspecified; Z88.7 Allergy status to serum and vaccine; Z79.899 Other long term (current) drug therapy; Z79.82 Long term (current) use of aspirin; Z90.710 Acquired absence of both cervix and uterus; W07.XXXA Fall from chair, initial encounter; Y92.009 Unspecified place in unspecified non-institutional (private) residence as the place of occurrence of the external cause
CPT/HCPCS: 36415; 70450; 71260; 72125; 74177; 80053; 80305-QW; 81001; 83735; 84443; 84484; 85025; 85610; 86140; 86308; 93005; 93010; 96360; 96361; 99284-GF; 99285-25; G0480; J7030; Q9967

== ENCOUNTER 2020-12-05 14:27 | Emergency (ER) | payer MEDICARE, OTHER ==
[2020-12-05 15:20] VITALS: PULSE 70
--- NOTE | 2020-12-05 15:20 | EDM.PDOC ---
ED HPI GENERAL MEDICAL PROBLEM - General Chief Complaint: General Stated Complaint: vomiting/left arm shaking Time Seen by Provider: 12/05/20 14:50 Source of Information: Reports: Patient, Family History Limitations: Reports: Other (has short term memory recall deficit of all events of the day) - History of Present Illness INITIAL COMMENTS - FREE TEXT/NARRATIVE: Tracie is a 75 year old who presents to ER with son with concerns of not feeling well. States earlier in the day, noted her left arm was shaking and felt cold. Laid down to rest then and felt her left leg start to feel cold. Denies any head pain. No weakness in either her arm or leg. Is ambulating well at home per son and in to ER. Tried to eat dinner today and was unable to "keep down and vomited it all up". Had another episode of vomiting prior to coming here. Relates a "few" episodes of diarrhea since this am as well. Feels weak and cold. Son relates that she often complains of feeling cold. No chest pain, shortness of breath or abdominal pain. Denies fevers. No burning with urination. Onset: Today, Gradual Duration: Hour(s): Location: Reports: Abdomen, Generalized Quality: Reports: Ache Severity: Mild Improves with: Reports: Rest Associated Symptoms: Reports: Confusion (chronic in nature), Malaise, Nausea/Vomiting. Denies: Chest Pain, Cough, Fever/Chills, Headaches, Loss of Appetite, Shortness of Breath - Related Data Allergies Allergy/AdvReac Type Severity Reaction Status Date / Time flu vaccine Allergy Cannot Uncoded 12/05/20 15:25 Remember Home Meds: Home Meds Citalopram [Celexa] 10 mg PO DAILY 05/10/15 [History] hydroCHLOROthiazide [Hydrochlorothiazide] 12.5 mg PO DAILY 05/10/15 [History] Alendronate [Fosamax] 70 mg PO Q7D@0600 07/11/15 [History] Aspirin/Caffeine [Anacin 400-32 mg Tablet] 1 each PO DAILY 08/07/17 [History] Cholecalciferol (Vitamin D3) [D-2000] 2,000 unit PO DAILY 08/07/17 [History] Multivitamin [Multivitamins] 1 each PO DAILY 08/07/17 [History] Donepezil HCl [Aricept] 20 mg PO DAILY 12/05/20 [History] Past Medical History HEENT History: Reports: None Cardiovascular History: Reports: Hypertension Gastrointestinal History: Reports: None 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 History: Reports: None CLEANING 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 History: Reports: None Musculoskeletal History: Reports: Osteoporosis Other Musculoskeletal History: herniated disc Neurological History: Reports: Concussion, Headaches, Chronic Psychiatric History: Reports: Depression - Past Surgical History HEENT Surgical History: Reports: Tonsillectomy GI Surgical History: Reports: None Female Surgical History: Reports: Hysterectomy Social & Family History - Family History Family Medical History: No Pertinent Family History - Tobacco Use Tobacco Use Status *Q: Unknown Ever Used Tobacco - Caffeine Use Caffeine Use: Reports: Coffee, Soda ED ROS GENERAL - Review of Systems Review Of Systems: See Below Constitutional: Reports: Chills, Malaise, Weakness, Fatigue. Denies: Fever, Decreased Appetite HEENT: Denies: Rhinitis, Sinus Problem, Throat Pain, Vertigo, Vision Change Respiratory: Denies: Shortness of Breath, Cough Cardiovascular: Denies: Chest Pain, Edema, Lightheadedness Endocrine: Reports: Fatigue GI/Abdominal: Reports: Diarrhea, Nausea, Vomiting. Denies: Abdominal Pain, Constipation : Reports: No Symptoms Musculoskeletal: Reports: Other (left arm and leg shaking and cold) Skin: Reports: No Symptoms Neurological: Reports: Weakness. Denies: Dizziness, Headache Psychiatric: Reports: No Symptoms ED EXAM, GENERAL - Physical Exam Exam: See Below Exam Limited By: No Limitations General Appearance: Alert, WD/WN, No Apparent Distress Eye Exam: Bilateral Eye: PERRL Ears: Normal External Exam, Normal TMs Nose: Normal Inspection, Normal Mucosa, No Blood Throat/Mouth: Normal Inspection, Normal Oropharynx Head: Normocephalic Neck: Normal Inspection, Supple, Non-Tender Respiratory/Chest: No Respiratory Distress, Lungs Clear, Normal Breath Sounds Cardiovascular: Regular Rate, Rhythm GI/Abdominal: Normal Bowel Sounds, Soft, Non-Tender Extremities: Normal Inspection, Normal Range of Motion, No Pedal Edema, Other (strengths are equal bilaterally) Skin Exam: Warm, Dry Course - Vital Signs Last Recorded V/S: Last Vital Signs Temp 97.2 F 12/05/20 14:27 Pulse 70 12/05/20 14:27 Resp 18 12/05/20 14:27 BP 173/77 H 12/05/20 14:27 Pulse Ox 99 12/05/20 14:27 - Orders/Labs/Meds Labs: Laboratory Tests 12/05/20 12/05/20 12/05/20 Range/Units 15:15 15:18 15:18 WBC 8.0 (4.0-10.0) x10^3/uL RBC 4.47 (4.00-5.50) x10^6/uL Hgb 13.9 (12.0-16.0) g/dL Hct 40.1 (33.0-47.0) % MCV 89.7 (78.0-93.0) fL MCH 31.1 (26.0-32.0) pg MCHC 34.7 (32.0-36.0) g/dL RDW Coeff of Rosalind 13.1 (10.0-15.0) % Plt Count 186 (130-400) x10^3/uL Immature Gran % (Auto) 0.20 (0.00-0.43) % Neut % (Auto) 80.3 H (50.0-80.0) % Lymph % (Auto) 14.8 L (25.0-50.0) % [place] % (Auto) 3.9 (2.0-11.0) % Eos % (Auto) 0.2 (0.0-4.0) % Baso % (Auto) 0.6 (0.2-1.2) % Neut # (Auto) 6.4 (1.8-7.7) x10^3/uL Lymph # (Auto) 1.2 (1.0-4.8) x10^3/uL [place] # (Auto) 0.3 (0.0-0.8) x10^3/uL Eos # (Auto) 0.0 (0.0-0.5) x10^3/uL Baso # (Auto) 0.1 (0.0-0.2) x10^3/uL Immature Gran # (Auto) 0.02 (0.00-0.07) x10^3/uL Sodium 137 (136-145) mmol/L Potassium 3.7 (3.5-5.1) mmol/L Chloride 100 (98-107) mmol/L Carbon Dioxide 27 (21-32) mmol/L Anion Gap 13.7 (5-15) mmol/L BUN 12 (7-18) mg/dL Creatinine 0.8 (0.55-1.02) mg/dL Est Cr Clr Drug Dosing TNP Estimated GFR (MDRD) > 60 Glucose 123 H (70-99) mg/dL Calcium 8.8 (8.5-10.1) mg/dL Corrected Calcium 9.0 (8.5-10.1) mg/dL Total Bilirubin 0.4 (0.2-1.0) mg/dL AST 28 (15-37) U/L ALT 31 (14-59) U/L Alkaline Phosphatase 69 (46-116) U/L Troponin I High Sens 20 (<=51) ng/L C-Reactive Protein 1.1 H (<=0.9) mg/dL Total Protein 6.7 (6.4-8.2) g/dL Albumin 3.7 (3.4-5.0) g/dL Globulin 3.0 Albumin/Globulin Ratio 1.23 Urine Color Yellow (YELLOW) Urine Appearance Clear (CLEAR) Urine pH 7.0 (5.0-8.0) Ur Specific [place] 1.020 Urine Protein Trace H (NEGATIVE) mg/dL Urine Glucose (UA) Negative (NEGATIVE) mg/dL Urine Ketones 40 H (NEGATIVE) mg/dL Urine Occult Blood Trace-intact H (NEGATIVE) Urine Nitrite Negative (NEGATIVE) Urine Bilirubin Negative (NEGATIVE) Urine Urobilinogen 0.2 (0.2) EU/dL Ur Leukocyte Esterase Negative (NEGATIVE) Urine RBC 5-10 H (NOT SEEN) /HPF Urine WBC 0-5 (NOT SEEN) /HPF Ur Squamous Epith Cells Occasional H (NOT SEEN) /HPF Urine Bacteria Rare (NOT SEEN) /HPF Urine Mucus Occasional H (NOT SEEN) /LPF - Re-Assessments/Exams Free Text/Narrative Re-Assessment/Exam: 12/05/20 15:57 Labs all unremarkable. Discussed with patient and son. Needs to push fluids, bland diet. Will start Zofran for nausea. Advised to return if persisting symptoms or worsening changes. Departure - Departure Time of Disposition: 15:58 Disposition: Home, Self-Care 01 Condition: Good Clinical Impression: Vomiting - Discharge Information *PRESCRIPTION DRUG MONITORING PROGRAM REVIEWED*: No *COPY OF PRESCRIPTION DRUG MONITORING REPORT IN PATIENT JAYLEN: No Instructions: Nausea and Vomiting, Adult Forms: ED Department Discharge Additional Instructions: 1. Push fluids 2. Tylenol for discomfort 3. Zofran 4 mg under tongue every 6 hours as needed for nausea 4. [place] diet 5. Follow up if persisting symptoms, worsening vomiting or diarrhea or concerns Sepsis Event Note (ED) - Focused Exam Vital Signs: Vital Signs Temp Pulse Resp BP Pulse Ox 12/05/20 14:27 97.2 F 70 18 173/77 H 99
[2020-12-05 15:46] LABS: CHLORIDE,CL 100 mmol/L (98-107); SODIUM,NA 137 mmol/L (136-145)
[2020-12-05 15:48] LABS: ANION GAP 13.7 mmol/L (5-15)
[2020-12-05 16:54] VITALS: BP 137/64
== END 2020-12-05 16:47 | disposition home or self-care (01) ==
LOC: VM.ED 14:27
DX: R11.2 Nausea with vomiting, unspecified (principal); R19.7 Diarrhea, unspecified; I10 Essential (primary) hypertension; Z88.7 Allergy status to serum and vaccine; Z79.82 Long term (current) use of aspirin; Z79.899 Other long term (current) drug therapy
CPT/HCPCS: 36415; 80053; 81001; 84484; 85025; 86140; 99284

== ENCOUNTER 2022-11-11 19:47 | Emergency (ER) | payer MEDICARE, OTHER ==
[2022-11-11] MEDS ORDERED: methylPREDNISolone Sodium Succinate 125 MG/2 ML SDV IM ONE (20:27)
[2022-11-11 22:53] VITALS: PULSE 61
[2022-11-11 23:11] VITALS: BP 144/68
== END 2022-11-11 20:49 | disposition home or self-care (01) ==
LOC: VM.ED 19:47
DX: L50.9 Urticaria, unspecified (principal); Z88.7 Allergy status to serum and vaccine
CPT/HCPCS: 96372; 99282; 99283; J2930

== ENCOUNTER 2023-06-29 13:55 | Emergency (ER) | payer OTHER, MEDICARE ==
[2023-06-29] MEDS: Acetaminophen/HYDROcodone 325-5 MG Tab PO ONE (14:30)
[2023-06-29 14:56] VITALS: BP 125/66; PULSE 82
== END 2023-06-29 16:30 | disposition home or self-care (01) ==
LOC: VM.ED 13:55
DX: S52.531A Colles' fracture of right radius, initial encounter for closed fracture (principal); I10 Essential (primary) hypertension; M81.0 Age-related osteoporosis without current pathological fracture; Z88.7 Allergy status to serum and vaccine; Z79.899 Other long term (current) drug therapy; W19.XXXA Unspecified fall, initial encounter
CPT/HCPCS: 29125; 73110-RT; 99283-25; A9270-GY

== ENCOUNTER 2023-06-30 11:27 | Inpatient (IN) | payer MEDICARE, OTHER ==
[2023-06-30] MEDS: Acetaminophen 325 MG Tab PO SCH (12:51)
[2023-06-30] MEDS: HYDROmorphone 0.5 MG/0.5 ML Syringe IVPUSH PRN (12:51)
[2023-06-30 13:50] LABS: BASOPHILS ABSOLUTE AUTO 0.1 x10^3/uL (0.0-0.2); EOSINOPHILS ABSOLUTE AUTO 0.1 x10^3/uL (0.0-0.5); EOSINOPHILS PERCENT AUTO 1.6 % (0.0-4.0); HEMATOCRIT 34.7 % (33.0-47.0); HEMOGLOBIN 11.8 g/dL (12.0-16.0); IMMATURE GRAN ABSOLUTE AUTO 0.01 x10^3/uL (0.00-0.07); LYMPHOCYTES ABSOLUTE AUTO 1.8 x10^3/uL (1.0-4.8); LYMPHOCYTES PERCENT AUTO 27.6 % (25.0-50.0); MEAN CORPUSCULAR HEMOGLOBIN 30.3 pg (26.0-32.0); MEAN CORPUSCULAR VOLUME 89.2 fL (78.0-93.0); MONOCYTES ABSOLUTE AUTO 0.5 x10^3/uL (0.0-0.8); MONOCYTES PERCENT AUTO 7.3 % (2.0-11.0); NEUTROPHILS ABSOLUTE AUTO 4.2 x10^3/uL (1.8-7.7); NEUTROPHILS PERCENT AUTO 62.4 % (50.0-80.0); PLATELET COUNT,PLT 185 x10^3/uL (130-400); RED BLOOD CELL COUNT 3.89 x10^6/uL (4.00-5.50); WHITE BLOOD CELL COUNT,WBC 6.7 x10^3/uL (4.0-10.0)
[2023-06-30 14:10] LABS: A/G RATIO 1.15; ALBUMIN 3.1 g/dL (3.4-5.0); BILIRUBIN TOTAL 0.6 mg/dL (0.2-1.0); CALCIUM 8.6 mg/dL (8.5-10.1); CREATININE 0.7 mg/dL (0.55-1.02); EST CRCL DRUG DOSING (CG) 61.01 mL/min; POTASSIUM,K 3.3 mmol/L (3.5-5.1); PROTEIN TOTAL,TP 5.8 g/dL (6.4-8.2)
[2023-06-30 14:12] LABS: ANION GAP 11.3 mmol/L (5-15)
[2023-06-30 15:11] LABS: APPEARANCE,URINE CLEAR (CLEAR); BILIRUBIN,URINE NEGATIVE (NEGATIVE); COLOR,URINE YELLOW (YELLOW); GLUCOSE,URINE NEGATIVE (NEGATIVE); KETONES,URINE NEGATIVE (NEGATIVE); LEUKOCYTE ESTERASE,URINE NEGATIVE (NEGATIVE); NITRITE,URINE NEGATIVE (NEGATIVE); OCCULT BLOOD,URINE NEGATIVE (NEGATIVE); PROTEIN,URINE NEGATIVE (NEGATIVE); UROBILINOGEN,URINE 0.2 EU/dL (0.2)
[2023-06-30] MEDS ORDERED: Loratadine 10 MG Tab PO PRN (16:41)
[2023-06-30] MEDS: Potassium Chloride 10 MEQ Tab.ER PO SCH (18:26)
[2023-06-30] MEDS: Acetaminophen/oxyCODONE 325-5 MG Tab PO PRN (20:42)
[2023-06-30] MEDS: Calcium Citrate/Vitamin D3 315 MG-250 Unit Tab PO SCH (20:42)
[2023-06-30] MEDS: Memantine 10 MG Tab PO SCH (20:42)
[2023-07-01 06:59] LABS: BASOPHILS ABSOLUTE AUTO 0.1 x10^3/uL (0.0-0.2); BASOPHILS PERCENT AUTO 1.1 % (0.2-1.2); EOSINOPHILS ABSOLUTE AUTO 0.3 x10^3/uL (0.0-0.5); EOSINOPHILS PERCENT AUTO 4.2 % (0.0-4.0); HEMATOCRIT 35.3 % (33.0-47.0); HEMOGLOBIN 11.8 g/dL (12.0-16.0); IMMATURE GRAN ABSOLUTE AUTO 0.01 x10^3/uL (0.00-0.07); LYMPHOCYTES ABSOLUTE AUTO 1.8 x10^3/uL (1.0-4.8); LYMPHOCYTES PERCENT AUTO 29.3 % (25.0-50.0); MEAN CORPUSCULAR HEMOGLOBIN 30.3 pg (26.0-32.0); MEAN CORPUSCULAR HGB CONC 33.4 g/dL (32.0-36.0); MEAN CORPUSCULAR VOLUME 90.5 fL (78.0-93.0); MONOCYTES ABSOLUTE AUTO 0.5 x10^3/uL (0.0-0.8); MONOCYTES PERCENT AUTO 8.3 % (2.0-11.0); NEUTROPHILS ABSOLUTE AUTO 3.5 x10^3/uL (1.8-7.7); NEUTROPHILS PERCENT AUTO 56.9 % (50.0-80.0); PLATELET COUNT,PLT 193 x10^3/uL (130-400); WHITE BLOOD CELL COUNT,WBC 6.2 x10^3/uL (4.0-10.0)
[2023-07-01 07:18] LABS: CALCIUM 8.5 mg/dL (8.5-10.1); CREATININE 0.7 mg/dL (0.55-1.02); EST CRCL DRUG DOSING (CG) 61.01 mL/min; POTASSIUM,K 3.8 mmol/L (3.5-5.1)
[2023-07-01 07:19] LABS: ANION GAP 12.8 mmol/L (5-15)
[2023-07-01] MEDS: Multivitamin Tab PO SCH (09:37)
[2023-07-01] MEDS: Citalopram 10 MG Tab PO SCH (09:37)
[2023-07-01] MEDS: QUEtiapine 25 MG Tab PO PRN (20:34)
[2023-07-01] MEDS: Donepezil 10 MG Tab PO SCH (20:34)
[2023-07-01] MEDS ORDERED: Acetaminophen 500 MG Tab PO PRN (21:26)
[2023-07-01] MEDS: Sennosides/Docusate Sodium 50-8.6 MG Tab PO SCH (21:58)
[2023-07-01] MEDS ORDERED: Flumazenil 0.1 MG/ML 5 ML MDV IVPUSH PRN (22:58)
[2023-07-01] MEDS: LORazepam 2 MG/ML SDV IVPUSH PRN (23:13)
[2023-07-02] MEDS: Enoxaparin 40 MG/0.4 ML Syringe SUBCUT SCH (09:57)
[2023-07-02] MEDS: Melatonin 3 MG Tab PO SCH (20:08)
[2023-07-03 08:21] LABS: BASOPHILS ABSOLUTE AUTO 0.1 x10^3/uL (0.0-0.2); BASOPHILS PERCENT AUTO 0.9 % (0.2-1.2); EOSINOPHILS ABSOLUTE AUTO 0.2 x10^3/uL (0.0-0.5); EOSINOPHILS PERCENT AUTO 2.5 % (0.0-4.0); HEMATOCRIT 40.3 % (33.0-47.0); HEMOGLOBIN 13.6 g/dL (12.0-16.0); IMMATURE GRAN ABSOLUTE AUTO 0.01 x10^3/uL (0.00-0.07); LYMPHOCYTES PERCENT AUTO 30.9 % (25.0-50.0); MEAN CORPUSCULAR HEMOGLOBIN 30.4 pg (26.0-32.0); MEAN CORPUSCULAR HGB CONC 33.7 g/dL (32.0-36.0); MEAN CORPUSCULAR VOLUME 90.2 fL (78.0-93.0); MONOCYTES ABSOLUTE AUTO 0.4 x10^3/uL (0.0-0.8); MONOCYTES PERCENT AUTO 6.5 % (2.0-11.0); NEUTROPHILS ABSOLUTE AUTO 3.8 x10^3/uL (1.8-7.7); PLATELET COUNT,PLT 225 x10^3/uL (130-400); RED BLOOD CELL COUNT 4.47 x10^6/uL (4.00-5.50); WHITE BLOOD CELL COUNT,WBC 6.4 x10^3/uL (4.0-10.0)
[2023-07-03 08:36] LABS: CALCIUM 8.8 mg/dL (8.5-10.1); CREATININE 0.6 mg/dL (0.55-1.02); EST CRCL DRUG DOSING (CG) 71.17 mL/min; POTASSIUM,K 3.9 mmol/L (3.5-5.1)
[2023-07-03 08:50] LABS: ANION GAP 15.9 mmol/L (5-15)
[2023-07-03] MEDS: Sodium Chloride 0.9% 10 ML Syringe FLUSH PRN (20:27)
[2023-07-04 05:48] VITALS: BP 142/64; PULSE 68
[2023-07-04] MEDS: Menthol 10%/Methyl Salicylate 15% 85 GM Tube TOP SCH (10:33)
== END 2023-07-04 12:20 | disposition swing bed (61) | DRG 563 ==
LOC: VM.MS 11:27
PROVIDERS: ADMIT Internal Medicine; ATTEND Internal Medicine
DX: S52.531A Colles' fracture of right radius, initial encounter for closed fracture (principal); F02.B4 Dementia in other diseases classified elsewhere, moderate, with anxiety; M81.0 Age-related osteoporosis without current pathological fracture; G47.00 Insomnia, unspecified; G30.1 Alzheimer's disease with late onset; I10 Essential (primary) hypertension; E87.6 Hypokalemia; D64.9 Anemia, unspecified; F39 Unspecified mood [affective] disorder; W19.XXXA Unspecified fall, initial encounter; Z88.7 Allergy status to serum and vaccine; Z79.899 Other long term (current) drug therapy; Z79.82 Long term (current) use of aspirin; Z90.710 Acquired absence of both cervix and uterus; Z90.49 Acquired absence of other specified parts of digestive tract; Z90.89 Acquired absence of other organs; Z91.81 History of falling
CPT/HCPCS: 36415; 71046; 80048; 80053; 81003; 83735; 85025; 97161-GP; 97165-GO; 97535-GO; A9270-GY; J1170; J1650; J2060; J3490

== ENCOUNTER 2023-07-04 09:10 | Inpatient (IN) | payer MEDICARE, OTHER ==
[2023-07-04] MEDS ORDERED: Loratadine 10 MG Tab PO PRN (14:03)
[2023-07-04] MEDS ORDERED: Sodium Chloride 0.9% 10 ML Syringe FLUSH PRN (14:03)
[2023-07-04] MEDS ORDERED: QUEtiapine 25 MG Tab PO PRN (14:03)
[2023-07-04] MEDS: Calcium Citrate/Vitamin D3 315 MG-250 Unit Tab PO SCH (17:55)
[2023-07-04] MEDS: Acetaminophen 325 MG Tab PO SCH (21:39)
[2023-07-04] MEDS: Sennosides/Docusate Sodium 50-8.6 MG Tab PO SCH (21:40)
[2023-07-04] MEDS: Melatonin 3 MG Tab PO SCH (21:41)
[2023-07-04] MEDS: Memantine 10 MG Tab PO SCH (21:41)
[2023-07-04] MEDS: Donepezil 10 MG Tab PO SCH (21:41)
[2023-07-04] MEDS: Menthol 10%/Methyl Salicylate 15% 85 GM Tube TOP SCH (21:41)
[2023-07-05] MEDS: Acetaminophen/oxyCODONE 325-5 MG Tab PO PRN (05:31)
[2023-07-05] MEDS: Multivitamin Tab PO SCH (08:02)
[2023-07-05] MEDS: Potassium Chloride 10 MEQ Tab.ER PO SCH (08:02)
[2023-07-05] MEDS: Citalopram 10 MG Tab PO SCH (08:03)
[2023-07-05] MEDS: Acetaminophen 500 MG Tab PO PRN (16:08)
[2023-07-06 11:11] VITALS: BP 119/62; PULSE 67
[2023-09-03] MEDS ORDERED: DENOSUMAB 60 MG SQ SCH (13:00)
== END 2023-07-06 11:00 | DRG 560 ==
LOC: VM.MS 15:20
PROVIDERS: ADMIT Internal Medicine; ATTEND Internal Medicine
DX: S52.531D Colles' fracture of right radius, subsequent encounter for closed fracture with routine healing (principal); F02.B4 Dementia in other diseases classified elsewhere, moderate, with anxiety; M81.0 Age-related osteoporosis without current pathological fracture; G30.1 Alzheimer's disease with late onset; I10 Essential (primary) hypertension; E87.6 Hypokalemia; D64.9 Anemia, unspecified; F39 Unspecified mood [affective] disorder; W19.XXXD Unspecified fall, subsequent encounter; Z90.710 Acquired absence of both cervix and uterus; Z90.49 Acquired absence of other specified parts of digestive tract; Z90.89 Acquired absence of other organs
CPT/HCPCS: 95851-GO; A9270-GY

== ENCOUNTER 2023-07-08 19:45 | Emergency (ER) | payer MEDICARE, OTHER ==
[2023-07-08 23:13] VITALS: BP 147/69; PULSE 73
== END 2023-07-08 20:42 | disposition home or self-care (01) ==
LOC: VM.ED 19:45
DX: S52.501A Unspecified fracture of the lower end of right radius, initial encounter for closed fracture (principal); I10 Essential (primary) hypertension; Z88.7 Allergy status to serum and vaccine; Z79.899 Other long term (current) drug therapy; Z90.710 Acquired absence of both cervix and uterus; X58.XXXA Exposure to other specified factors, initial encounter
CPT/HCPCS: 99283

== ENCOUNTER 2024-01-05 19:20 | Emergency (ER) | payer MEDICARE, OTHER ==
[2024-01-05] MEDS ORDERED: Cephalexin 500 MG Cap PO ONE (19:57)
[2024-01-05] MEDS: Amoxicillin/Clavulanate K 875-125 MG Tab PO ONE (20:40)
[2024-01-05 21:51] VITALS: BP 82/42; PULSE 58
== END 2024-01-05 20:55 | disposition home or self-care (01) ==
LOC: VM.ED 19:20
DX: S66.822A Laceration of other specified muscles, fascia and tendons at wrist and hand level, left hand, initial encounter (principal); I10 Essential (primary) hypertension; Z90.710 Acquired absence of both cervix and uterus; Z79.1 Long term (current) use of non-steroidal anti-inflammatories (NSAID); Z79.899 Other long term (current) drug therapy; Z88.7 Allergy status to serum and vaccine; W26.8XXA Contact with other sharp object(s), not elsewhere classified, initial encounter
CPT/HCPCS: 12002; 99282; A9270-GY